=== PATIENT | female | born 1960 | race Caucasian/White ===

== ENCOUNTER → 2017-09-06 | Outpatient (CLI) | payer BC ==
[~2017-09-06] MED LIST: ALEVE220 MG PO; CALCIUM + D 6001 TA1 PO
== END ==
LOC: MC.RAD 08:54
DX: Z12.31 Encounter for screening mammogram for malignant neoplasm of breast (principal)

== ENCOUNTER → 2018-11-21 | Outpatient (CLI) | payer BC | LOC: MC.RAD 10:51 | DX: Z12.31 Encounter for screening mammogram for malignant neoplasm of breast (principal) ==

== ENCOUNTER 2019-11-17 13:32 | Day surgery (SDC) | payer BC ==
[~2019-11-17] VITALS: Ht 177.8 cm; Wt 81.8 kg
[2019-11-17 13:54] VITALS: BP 136/75; PULSE 68; TEMP 97.5
[2019-11-17] MEDS ORDERED: AMABELZ 0.5 MG1 EACH PO (14:19)
[2019-11-17] MEDS ORDERED: LEXAPRO 10MG10 MG PO (14:20)
[2019-11-17] MEDS ORDERED: PRIL40 PO (14:21)
[2019-11-17] MEDS ORDERED: XIIDRA1 EACH OP (14:21)
[2019-11-17] MEDS ORDERED: ALEVE PM PO (14:22)
[2019-11-17] MEDS ORDERED: ALEVE 220MG220 MG PO (14:22)
[2019-11-17] MEDS ORDERED: DUO-KAPS1 CAP PO (14:24)
[2019-11-17] MEDS ORDERED: OMEGA-31 SGL PO (14:25)
[2019-11-17] MEDS ORDERED: CALCIUM CARBON650 M2 PO (14:25)
[2019-11-17] MEDS ORDERED: MIRALAX PA17 GM/Dose PO (14:26)
[2019-11-17] MEDS ORDERED: VITAMIN C500 MG PO (14:26)
[2019-11-17 15:35] VITALS: BP 111/75; PULSE 87
--- NOTE | 2019-11-17 15:35 | NUR ---
Patient returns to [facility] per cart and transfers from cart to recliner with two person assist. IV fluids infusing and site is free of redness. Spouse in room. Temp 97.8. Dr. Cordova in room and talks with patient and spouse and all questions answered. Given sips of water to drink.
[2019-11-17 15:50] VITALS: BP 125/77; PULSE 64
--- NOTE | 2019-11-17 15:50 | NUR ---
Eating muffin and drinking water. Room air sats 100%.
[2019-11-17 16:05] VITALS: BP 128/75; PULSE 63
--- NOTE | 2019-11-17 16:05 | NUR ---
Tolerated muffin and water. Denies difficulty swallowing or any abdominal pain.
--- NOTE | 2019-11-17 16:10 | NUR ---
IV discontinued and site is free of redness. Given dismissal instructions and voices understanding of these. Patient is able to dress self.
--- NOTE | 2019-11-17 16:23 | NUR ---
Patient dismissed to home driven by spouse per private vehicle and taken to the front door per wheelchair and assisted into vehicle by this RN with dismissal instructions in hand.
== END 2019-11-17 16:23 | disposition home or self-care (01) ==
LOC: SDCO 13:32
DX: K57.30 Diverticulosis of large intestine without perforation or abscess without bleeding (principal); K31.1 Adult hypertrophic pyloric stenosis; K31.84 Gastroparesis; K25.7 Chronic gastric ulcer without hemorrhage or perforation; K21.9 Gastro-esophageal reflux disease without esophagitis; F41.9 Anxiety disorder, unspecified; F32.9 Major depressive disorder, single episode, unspecified; M19.90 Unspecified osteoarthritis, unspecified site; R19.7 Diarrhea, unspecified; Z92.3 Personal history of irradiation; Z80.0 Family history of malignant neoplasm of digestive organs; Z88.2 Allergy status to sulfonamides; Z85.828 Personal history of other malignant neoplasm of skin; Z96.653 Presence of artificial knee joint, bilateral
CPT/HCPCS: C1726; J2704; J7120

== ENCOUNTER → 2019-12-14 | Outpatient (CLI) | payer BC ==
[~2019-12-14] MED LIST changes: +ALEVE 220MG220 MG PO; +ALEVE PM PO; +AMABELZ 0.5 MG1 EACH PO; +CALCIUM CARBON650 M2 PO; +DUO-KAPS1 CAP PO; +LEXAPRO 10MG10 MG PO; +MIRALAX PA17 GM/Dose PO; +OMEGA-31 SGL PO; +PRIL40 PO; +VITAMIN C500 MG PO; +XIIDRA1 EACH OP
== END ==
LOC: MC.RAD 14:15
DX: Z12.31 Encounter for screening mammogram for malignant neoplasm of breast (principal)

== ENCOUNTER → 2020-12-16 | Outpatient (CLI) | payer BC | LOC: MC.RAD 14:30 | DX: Z12.31 Encounter for screening mammogram for malignant neoplasm of breast (principal) ==

== ENCOUNTER → 2022-01-24 | Outpatient (CLI) | payer BC | LOC: MC.RAD 14:15 | DX: Z12.31 Encounter for screening mammogram for malignant neoplasm of breast (principal) ==

== ENCOUNTER 2022-03-02 12:43 | Day surgery (SDC) | payer BC ==
[~2022-03-02] VITALS: Ht 180.3 cm; Wt 78.3 kg
[~2022-03-02 12:43] MED LIST changes: +CALCIUM 600600 MG PO; -CALCIUM CARBON650 M2 PO
[2022-03-02] MEDS ORDERED: MOBIC15 MG PO (13:10)
[2022-03-02] MEDS ORDERED: RESTASIS MULTI5.5 ML OP (13:10)
[2022-03-02] MEDS ORDERED: PROBIOTIC BLEN1 EACH PO (13:11)
[2022-03-02] MEDS ORDERED: ALOE VERA CONCE1 CAP PO (13:11)
[2022-03-02 13:13] VITALS: BP 106/72; PULSE 66; TEMP 97.9
[2022-03-02 14:20] VITALS: BP 116/71; PULSE 71; TEMP 98.4
--- NOTE | 2022-03-02 14:20 | NUR ---
The patient arrived back to [facility] from the endoscopy suite at this time. The patient appears alert and oriented and denies any pain or nausea at this time. The patient agrees to try some water and sprite. Post procedure vital signs were started at this time. at bedside. Call light is within reach.
[2022-03-02 14:35] VITALS: BP 129/75; PULSE 60
--- NOTE | 2022-03-02 14:35 | NUR ---
The patient appears to be tolerating the liquids well and requests to try a muffin. Vital signs appear stable. remains at bedside.
[2022-03-02 14:55] VITALS: BP 130/74; PULSE 68
--- NOTE | 2022-03-02 14:55 | NUR ---
Discharge instructions were reviewed with the patient and her at this time. They both verbalized understanding and have no questions for the nurse at this time. The patient's IV to her right wrist was removed and a pressure dressing was applied to the site. The nurse instructed the patient to get dressed and notify the staff when she is ready to be escorted out.
--- NOTE | 2022-03-02 15:05 | NUR ---
The patient was escorted out via wheelchair to a private vehicle by KILEY Prajapati. The patient's belongings and discharge paperwork were sent with her. The patient's is present to drive her home.
== END 2022-03-02 15:05 ==
LOC: SDCO 12:43
DX: K31.1 Adult hypertrophic pyloric stenosis (principal); R10.13 Epigastric pain; Z86.16 Personal history of COVID-19; Z85.828 Personal history of other malignant neoplasm of skin
CPT/HCPCS: C1726; J2704; J7030

== ENCOUNTER 2022-03-30 11:22 | Day surgery (SDC) | payer BC ==
[~2022-03-30] VITALS: Ht 180.3 cm; Wt 77.3 kg
[~2022-03-30 11:22] MED LIST changes: +ALOE VERA CONCE1 CAP PO; +MOBIC15 MG PO; +PROBIOTIC BLEN1 EACH PO; +RESTASIS MULTI5.5 ML OP
[2022-03-30] MEDS ORDERED: PROBIOTIC ACID1 EAC3 PO (12:02)
[2022-03-30] MEDS ORDERED: OMEGA-3 1000 MG1 CAP PO (12:03)
[2022-03-30] MEDS ORDERED: CALCIUM 600 MG1 EAC2 PO (12:03)
[2022-03-30] MEDS ORDERED: MULTI VITAMINS1 TAB PO (12:04)
[2022-03-30 14:01] VITALS: BP 116/67; PULSE 59; TEMP 98.5
[2022-03-30 14:03] VITALS: BP 116/67; PULSE 67; TEMP 98.3
--- NOTE | 2022-03-30 14:03 | NUR ---
PATIENT BACK TO ROOM 6 VIA CART. ASSIST X 1 TO GET TO THE CHAIR. AT BEDSIDE. PATIENT REQUESTS CHOCOLATE PUDDING AND SPRITE.
[2022-03-30 14:18] VITALS: BP 119/78; PULSE 67
[2022-03-30 14:33] VITALS: BP 117/90; PULSE 68
--- NOTE | 2022-03-30 14:43 | NUR ---
PATIENT DONE TALKING WITH THE DOCTOR. IV D/Cd AT 1427. DISCHARGE INSTRUCTIONS REVIEWED WITH PATIENT AND . PATIENT DISCHARGED VIA WC AT 1440. AT BEDSIDE.
== END 2022-03-30 14:40 | disposition home or self-care (01) ==
LOC: SDCO 11:22
DX: K31.1 Adult hypertrophic pyloric stenosis (principal); Z86.16 Personal history of COVID-19; Z79.899 Other long term (current) drug therapy; Z87.11 Personal history of peptic ulcer disease
CPT/HCPCS: C1726; J2704; J7120

== ENCOUNTER → 2024-08-10 | Outpatient (CLI) | payer MEDICARE, BC, OTHER ==
[~2024-08-10] MED LIST changes: +ARIMIDEX1 MG PO; +CALCIUM 600 MG1 EAC2 PO; +MULTI VITAMINS1 TAB PO; +NORCO 325 MG-51 TAB PO; +OMEGA-3 1000 MG1 CAP PO; -PRIL40 PO; +PRILOSEC 20MG20 MG PO; +PROBIOTIC ACID1 EAC3 PO; +TYLENOL PM EXTR1 TA1 PO; +VITAMINC500CH; +XYZAL5 MG PO
== END ==
LOC: MC.RAD 08:12
DX: Z12.31 Encounter for screening mammogram for malignant neoplasm of breast (principal)